=== PATIENT | male | born 1980 | race American Indian/Alaskan Native ===

== ENCOUNTER 2017-03-30 10:17 | Emergency (ER) | payer SELFPAY ==
[2017-03-30 10:53] VITALS: BP 154/94
[2017-03-30] MEDS ORDERED: TORADOL IM ONE (13:35)
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
== END 2017-03-30 14:06 | disposition home or self-care (01) ==
LOC: ED 10:17
DX: S39.012A Strain of muscle, fascia and tendon of lower back, initial encounter (principal); G43.909 Migraine, unspecified, not intractable, without status migrainosus; X50.0XXA Overexertion from strenuous movement or load, initial encounter; Y93.89 Activity, other specified; Y99.8 Other external cause status; Y92.89 Other specified places as the place of occurrence of the external cause
CPT/HCPCS: 96372; 99282; J1885

== ENCOUNTER 2017-08-28 18:57 | Emergency (ER) | payer SELFPAY ==
[2017-08-28 19:48] VITALS: BP 115/75
[2017-08-28] MEDS ORDERED: TORADOL IM ONE (20:36)
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
[2017-08-28 21:10] LABS: Bacteria,Urine 1+ /HPF (Negative)
[2017-08-28 21:26] LABS: Bilirubin,Urine Negative (Negative); Blood,Urine Negative (Negative); Ketones,Urine Trace mg/dL (Negative)
[2017-08-28 21:27] LABS: Leukocyte Esterase,Urine Negative (Negative); Nitrite,Urine Negative (Negative); Urobilinogen,Urine < 2.0 mg/dL (<2.0)
== END 2017-08-28 22:38 | disposition home or self-care (01) ==
LOC: ED 18:57
DX: S39.012A Strain of muscle, fascia and tendon of lower back, initial encounter (principal); G43.909 Migraine, unspecified, not intractable, without status migrainosus; F10.10 Alcohol abuse, uncomplicated; X50.0XXA Overexertion from strenuous movement or load, initial encounter; Y93.89 Activity, other specified; Y92.89 Other specified places as the place of occurrence of the external cause; Y99.8 Other external cause status
CPT/HCPCS: 81001; 96372; 99283; J1885

== ENCOUNTER 2017-09-13 20:58 | Emergency (ER) | payer SELFPAY ==
[2017-09-14] MEDS ORDERED: PEPCID PO ONE (03:09)
[2017-09-14] MEDS ORDERED: LIDOCAINE VISCOUS 2% PO ONE (03:09)
[2017-09-14] MEDS ORDERED: ALUM-MAG HYDROX-SIMETH 200-200-20MG/5ML PO ONE (03:10)
[2017-09-14] MEDS ORDERED: REGLAN PO ONE (03:10)
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
[2017-09-14 07:00] VITALS: BP 101/51
== END 2017-09-14 04:20 | disposition home or self-care (01) ==
LOC: ED 20:58
DX: R06.6 Hiccough (principal); G43.909 Migraine, unspecified, not intractable, without status migrainosus
CPT/HCPCS: 99282

== ENCOUNTER 2017-10-06 22:02 | Emergency (ER) | payer OTHER ==
[2017-10-06 22:41] LABS: Bilirubin,Urine NEG (Negative); Blood,Urine NEG (Negative); Color,Urine Yellow (Yellow); Mucus,Urine FEW /HPF; Nitrite,Urine NEG (Negative); Protein,Urine <15 mg/dL mg/dL (Negative)
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
--- NOTE | 2017-10-07 06:05 | XRay Report ---
FINAL REPORT PROCEDURE: XR SPINE LUMBOSACRAL 2-3V TECHNIQUE: Lumbar spine radiographs, including AP, lateral, and lumbosacral spot views. CPT 46882 HISTORY: bilateral low back pain COMPARISON: No prior studies are available for comparison. FINDINGS: Alignment: Normal. Vertebral body heights/Disk spaces: Normal. Fracture(s): None. Facets: Normal. Bone mineralization: Normal. IMPRESSION: Normal Examination.
[2017-10-07 07:40] VITALS: BP 106/71
== END 2017-10-07 07:40 | disposition home or self-care (01) ==
LOC: ED 22:02
DX: S39.012A Strain of muscle, fascia and tendon of lower back, initial encounter (principal); X58.XXXA Exposure to other specified factors, initial encounter; Y93.89 Activity, other specified; Y99.8 Other external cause status; Y92.69 Other specified industrial and construction area as the place of occurrence of the external cause
CPT/HCPCS: 72100; 81001; 99283

== ENCOUNTER 2017-12-29 10:57 | Emergency (ER) | payer SELFPAY ==
[2017-12-29 11:09] VITALS: BP 127/78
--- NOTE | 2017-12-29 11:29 | XRay Report ---
LEFT HIP: Pain. The bony architecture is intact without evidence of fracture or dislocation. No significant soft tissue abnormality is seen. IMPRESSION: Normal left hip.
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
== END 2017-12-29 15:05 | disposition home or self-care (01) ==
LOC: ED 10:57
DX: M25.552 Pain in left hip (principal); G43.909 Migraine, unspecified, not intractable, without status migrainosus; I10 Essential (primary) hypertension; S76.012A Strain of muscle, fascia and tendon of left hip, initial encounter; X58.XXXA Exposure to other specified factors, initial encounter; Y93.89 Activity, other specified; Y92.89 Other specified places as the place of occurrence of the external cause; Y99.8 Other external cause status
CPT/HCPCS: 99283

== ENCOUNTER 2018-06-18 22:37 | Emergency (ER) | payer BC ==
[2018-06-19 00:07] VITALS: BP 133/80
--- NOTE | 2018-06-19 01:04 | XRay Report ---
FINAL REPORT PROCEDURE: XR CHEST ROUTINE 2V TECHNIQUE: Chest radiograph posteroanterior projection. CPT 49165 HISTORY: shortness of breath COMPARISON: No prior studies are available for comparison. FINDINGS: Heart: Normal. Mediastinum/Vessels: Normal. Lungs/Pleural space: Normal. Bony thorax: No acute osseous abnormality. IMPRESSION: Normal examination
--- NOTE | 2018-06-19 06:12 | XRay Report ---
FINAL REPORT PROCEDURE: XR WRIST 2V LT TECHNIQUE: LEFT wrist radiographs, AP and lateral views. HISTORY: left wrist pain after a near fall COMPARISON: No prior studies are available for comparison. FINDINGS: Fracture(s)and/or Dislocation(s): None. Alignment: Normal. Joint space(s): Normal. Soft tissues: Normal. Bone mineralization: Normal. Foreign bodies: None. IMPRESSION: Normal Examination
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
== END 2018-06-19 06:43 | disposition home or self-care (01) ==
LOC: ED 22:37
DX: R05 Cough (principal); M25.532 Pain in left wrist; G43.909 Migraine, unspecified, not intractable, without status migrainosus
CPT/HCPCS: 71046

== ENCOUNTER 2018-11-04 10:22 | Emergency (ER) | payer BC ==
[2018-11-04 10:28] VITALS: BP 126/69
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
== END 2018-11-04 11:10 | disposition home or self-care (01) ==
LOC: ED 10:22
DX: J00 Acute nasopharyngitis [common cold] (principal); R06.6 Hiccough; G43.909 Migraine, unspecified, not intractable, without status migrainosus
CPT/HCPCS: 99282

== ENCOUNTER 2018-12-25 09:22 | Emergency (ER) | payer BC ==
[2018-12-25 09:51] VITALS: BP 124/80
--- NOTE | 2018-12-25 11:28 | XRay Report ---
ROUTINE CHEST, TWO VIEWS: HISTORY: Productive cough. The trachea, heart, mediastinal contour, lung barger and bony thorax are unremarkable. IMPRESSION: Unremarkable chest x-ray. No change since 06/19/18.
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
== END 2018-12-25 11:52 | disposition home or self-care (01) ==
LOC: ED 09:22
DX: J20.9 Acute bronchitis, unspecified (principal); G43.909 Migraine, unspecified, not intractable, without status migrainosus; F17.200 Nicotine dependence, unspecified, uncomplicated
CPT/HCPCS: 71046

== ENCOUNTER 2019-01-18 22:36 | Emergency (ER) | payer BC ==
[2019-01-18] MEDS ORDERED: REGLAN PO ONE (23:31)
[2019-01-18] MEDS ORDERED: BENADRYL PO ONE (23:31)
[2019-01-18] MEDS ORDERED: TORADOL PO ONE (23:32)
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
[2019-01-19 00:57] VITALS: BP 121/70
== END 2019-01-19 00:56 | disposition home or self-care (01) ==
LOC: ED 22:36
DX: G43.909 Migraine, unspecified, not intractable, without status migrainosus (principal)
CPT/HCPCS: 99282

== ENCOUNTER 2019-03-17 03:35 | Emergency (ER) | payer BC ==
[2019-03-17 03:43] VITALS: BP 151/88
[2019-03-17] MEDS ORDERED: TORADOL IM ONE (04:03)
[2019-03-17] MEDS ORDERED: DECADRON IM ONE (04:03)
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
== END 2019-03-17 04:49 | disposition home or self-care (01) ==
LOC: ED 03:35
DX: S46.912A Strain of unspecified muscle, fascia and tendon at shoulder and upper arm level, left arm, initial encounter (principal); M54.12 Radiculopathy, cervical region; G43.909 Migraine, unspecified, not intractable, without status migrainosus; Z98.890 Other specified postprocedural states; X58.XXXA Exposure to other specified factors, initial encounter; Y93.89 Activity, other specified; Y92.89 Other specified places as the place of occurrence of the external cause; Y99.8 Other external cause status
CPT/HCPCS: 96372; 99282; J1100; J1885

== ENCOUNTER 2019-04-20 17:41 | Observation (INO) | payer BC ==
[2019-04-20] MEDS ORDERED: ATROVENT IH ONE (17:49)
[2019-04-20] MEDS ORDERED: PROVENTIL IH ONE ×2 (17:49→19:27)
[2019-04-20] MEDS ORDERED: DECADRON PO ONE (17:49)
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
--- NOTE | 2019-04-20 18:47 | XRay Report ---
CHEST 2 VIEWS 1811 INDICATION / CLINICAL INFORMATION: Shortness of breath, chills, body aches. COMPARISON: None available. FINDINGS: SUPPORT DEVICES: None. HEART / MEDIASTINUM: No significant abnormality. LUNGS / PLEURA: No significant pulmonary or pleural abnormality. No pneumothorax. ADDITIONAL FINDINGS: No significant additional findings. IMPRESSION: No significant acute abnormality Signer Name: Ezio Gonzalez MD Signed: 04/20/2019 6:43 PM Workstation Name: [id number]
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
[2019-04-20] MEDS ORDERED: LIDOCAINE VISCOUS 2% PO ONE (19:25)
[2019-04-20] MEDS ORDERED: ALUM-MAG HYDROX-SIMETH 200-200-20MG/5ML PO ONE (19:25)
[2019-04-20 19:50] LABS: Basophils % (Auto) 0.1 % (0.0-1.8); Eosinophils # (Auto) 0.2 K/mm3 (0.0-0.4); Eosinophils % (Auto) 1.1 % (0.0-4.3); Hematocrit 41.2 % (35.5-45.6); Lymphocytes # (Auto) 1.3 K/mm3 (1.2-5.4); Lymphocytes % (Auto) 7.6 % (13.4-35.0); Mean Corpuscular HGB Conc 34 % (32-34); Mean Corpuscular Volume 85 fl (84-94); Monocytes # (Auto) 0.8 K/mm3 (0.0-0.8); Monocytes % (Auto) 4.5 % (0.0-7.3); Platelet Count 286 K/mm3 (140-440); Red Blood Count 4.85 M/mm3 (3.65-5.03); Red Cell Distribution Width 14.3 % (13.2-15.2)
[2019-04-20 20:00] LABS: INR 1.01 (0.87-1.13)
[2019-04-20 20:01] LABS: Partial Thromboplastin Time 21.9 Sec. (24.2-36.6)
[2019-04-20 20:07] LABS: Alanine Aminotransferase 18 units/L (7-56); Albumin 3.8 g/dL (3.9-5); BUN/Creatinine Ratio 7; Blood Urea Nitrogen 6 mg/dL (9-20)
[2019-04-20 20:22] LABS: Hemolysis Index 60
--- NOTE | 2019-04-20 21:25 | Cat Scan Report ---
CTA CHEST WITH IV CONTRAST INDICATION: Acute onset chest pain with dyspnea. TECHNIQUE: Axial CT images were obtained through the chest after injection of 100 mL IV contrast. 3 plane MIP re constructions were produced. All CT scans at this location are performed using CT dose reduction for ALARA by means of automated exposure control. COMPARISON: None available. FINDINGS: PULMONARY ARTERIES: No pulmonary emboli. AORTA AND ARTERIES: No acute abnormality. MEDIASTINUM: No mass, lymphadenopathy or other significant abnormality. The heart is normal in size w ithout a pericardial effusion. The trachea and main bronchi are patent and normal in caliber. LUNGS: No suspicious consolidation, nodule or mass. No pneumothorax or pleural effusion. ADDITIONAL FINDINGS: None. UPPER ABDOMEN: No acute findings. BONES: No significant osseous abnormality. IMPRESSION: 1. No CT evidence for pulmonary embolism. 2. No acute findings. Signer Name: Maik Astudillo MD Signed: 04/20/2019 9:20 PM Workstation Name: [id number]
[2019-04-20 22:24] LABS: Bilirubin,Urine NEG (Negative); Blood,Urine NEG (Negative); Color,Urine Straw (Yellow); Protein,Urine <15 mg/dL mg/dL (Negative); Urobilinogen,Urine < 2.0 mg/dL (<2.0); WBC,Urine < 1.0 /HPF (0.0-6.0)
[2019-04-20] MEDS ORDERED: ROCEPHIN/NS 1 GM/50 ML 1 GM/50 ML BAG IV ONE (22:39)
[2019-04-20] MEDS ORDERED: NACL 0.9% 1000 ML 1,000 ML IV ONE (22:39)
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
[2019-04-20] MEDS ORDERED: PROVENTIL IH PRN (23:59)
[2019-04-20] MEDS ORDERED: TYLENOL PO PRN (23:59)
[2019-04-20] MEDS ORDERED: PERCOCET 5/325 PO PRN (23:59)
[2019-04-20] MEDS ORDERED: ZOFRAN IV PRN (23:59)
[2019-04-20] MEDS ORDERED: SODIUM CHLORIDE FLUSH SYRINGE 10 ML IV PRN (23:59)
[2019-04-21 00:56] LABS: Creatine Kinase MB 2.9 ng/mL (0.0-4.0)
[2019-04-21 06:17] LABS: Hematocrit 40.4 % (35.5-45.6); Hemoglobin 13.2 gm/dl (11.8-15.2); Mean Corpuscular HGB Conc 33 % (32-34); Mean Corpuscular Volume 85 fl (84-94); Platelet Count 301 K/mm3 (140-440); Red Blood Count 4.75 M/mm3 (3.65-5.03); Red Cell Distribution Width 14.7 % (13.2-15.2)
[2019-04-21 06:44] LABS: BUN/Creatinine Ratio 8; Blood Urea Nitrogen 7 mg/dL (9-20); Hemolysis Index 0
[2019-04-21 07:04] LABS: Creatine Kinase MB 2.7 ng/mL (0.0-4.0)
[2019-04-21 07:45] LABS: Band Neutrophils # (Manual) 0.7 K/mm3; Basophils % (Manual) 0 % (0.0-1.8); Eosinophils % (Manual) 0 % (0.0-4.3); Total Cells Counted 100
[2019-04-21 07:46] LABS: Anisocytosis 1+
[2019-04-21] MEDS: SODIUM CHLORIDE FLUSH SYRINGE 10 ML IV SCH ×2 (10:20→23:01)
[2019-04-21] MEDS: LOVENOX SUB-Q SCH (10:20)
--- NOTE | 2019-04-21 11:58 | Progress Note ---
Assessment and Plan Assessment and plan: Chest pain. Stress thallium in a.m. Follow-up echocardiogram. Leukocytosis. Etiology likely stress-induced. Follow-up CBC in a.m. Elevated d-dimer. CTA of chest negative. History Interval history: No new issues overnight. Hospitalist Physical - Constitutional Vitals: Temp Pulse Resp BP Pulse Ox 98.6 F 74 18 131/76 98 04/21/19 08:16 04/21/19 08:16 04/21/19 08:16 04/21/19 08:16 04/21/19 08:16 General appearance: Present: no acute distress, well-nourished - EENT Eyes: Present: PERRL, EOM intact ENT: hearing intact, clear oral mucosa, dentition normal - Neck Neck: Present: supple, normal ROM - Respiratory Respiratory effort: normal Respiratory: bilateral: CTA - Cardiovascular Rhythm: regular Heart Sounds: Present: S1 & S2. Absent: gallop, rub - Extremities Extremities: no ischemia, No edema, Full ROM - Abdominal General gastrointestinal: soft, non-tender, non-distended, normal bowel sounds - Integumentary Integumentary: Present: clear, warm, dry - Neurologic Neurologic: CNII-XII intact, moves all extremities Results - Labs CBC & Chem 7: 04/21/19 04:28 04/21/19 04:28 Labs: Laboratory Last Values WBC 13.9 K/mm3 (4.5-11.0) H 04/21/19 04:28 RBC 4.75 M/mm3 (3.65-5.03) 04/21/19 04:28 Hgb 13.2 gm/dl (11.8-15.2) 04/21/19 04:28 Hct 40.4 % (35.5-45.6) 04/21/19 04:28 MCV 85 fl (84-94) 04/21/19 04:28 MCH 28 pg (28-32) 04/21/19 04:28 MCHC 33 % (32-34) 04/21/19 04:28 RDW 14.7 % (13.2-15.2) 04/21/19 04:28 Plt Count 301 K/mm3 (140-440) 04/21/19 04:28 Lymph % (Auto) 7.6 % (13.4-35.0) L 04/20/19 19:37 [place] % (Auto) 4.5 % (0.0-7.3) 04/20/19 19:37 Eos % (Auto) 1.1 % (0.0-4.3) 04/20/19 19:37 Baso % (Auto) 0.1 % (0.0-1.8) 04/20/19 19:37 Lymph # 1.3 K/mm3 (1.2-5.4) 04/20/19 19:37 [place] # 0.8 K/mm3 (0.0-0.8) 04/20/19 19:37 Eos # 0.2 K/mm3 (0.0-0.4) 04/20/19 19:37 Baso # 0.0 K/mm3 (0.0-0.1) 04/20/19 19:37 Add Manual Diff Complete 04/21/19 04:28 Total Counted 100 04/21/19 04:28 Seg Neutrophils % Nutrition Representative 04/21/19 04:28 Seg Neuts % (Manual) 81.0 % (40.0-70.0) H 04/21/19 04:28 5.0 % 04/21/19 04:28 12.0 % (13.4-35.0) L 04/21/19 04:28 Reactive Lymphs % (Man) 0 % 04/21/19 04:28 2.0 % (0.0-7.3) 04/21/19 04:28 0 % (0.0-4.3) 04/21/19 04:28 0 % (0.0-1.8) 04/21/19 04:28 0 % 04/21/19 04:28 0 % 04/21/19 04:28 0 % 04/21/19 04:28 0 % 04/21/19 04:28 Nucleated RBC % Not Reportable 04/21/19 04:28 Seg Neutrophils # 14.8 K/mm3 (1.8-7.7) H 04/20/19 19:37 Seg Neutrophils # Man 11.3 K/mm3 (1.8-7.7) H 04/21/19 04:28 Band Neutrophils # 0.7 K/mm3 04/21/19 04:28 1.7 K/mm3 (1.2-5.4) 04/21/19 04:28 Abs React Lymphs (Man) 0.0 K/mm3 04/21/19 04:28 0.3 K/mm3 (0.0-0.8) 04/21/19 04:28 0.0 K/mm3 (0.0-0.4) 04/21/19 04:28 0.0 K/mm3 (0.0-0.1) 04/21/19 04:28 0.0 K/mm3 04/21/19 04:28 0.0 K/mm3 04/21/19 04:28 0.0 K/mm3 04/21/19 04:28 Blast Cells # 0.0 K/mm3 04/21/19 04:28 WBC Morphology Not Reportable 04/21/19 04:28 WBC Morphology TNR 04/21/19 04:28 Hypersegmented Neuts Not Reportable 04/21/19 04:28 Hyposegmented Neuts Not Reportable 04/21/19 04:28 Hypogranular Neuts Not Reportable 04/21/19 04:28 Not Reportable 04/21/19 04:28 Not Reportable 04/21/19 04:28 Not Reportable 04/21/19 04:28 Not Reportable 04/21/19 04:28 Not Reportable 04/21/19 04:28 Not Reportable 04/21/19 04:28 Appears normal 04/21/19 04:28 Not Reportable 04/21/19 04:28 Plt Clumps, EDTA Not Reportable 04/21/19 04:28 Not Reportable 04/21/19 04:28 Not Reportable 04/21/19 04:28 Not Reportable 04/21/19 04:28 Plt Morphology Comment Not Reportable 04/21/19 04:28 RBC Morphology Not Reportable 04/21/19 04:28 Dimorphic RBCs Not Reportable 04/21/19 04:28 Not Reportable 04/21/19 04:28 Not Reportable 04/21/19 04:28 Not Reportable 04/21/19 04:28 1+ 04/21/19 04:28 Not Reportable 04/21/19 04:28 Not Reportable 04/21/19 04:28 Not Reportable 04/21/19 04:28 Not Reportable 04/21/19 04:28 Not Reportable 04/21/19 04:28 Not Reportable 04/21/19 04:28 Not Reportable 04/21/19 04:28 Not Reportable 04/21/19 04:28 Not Reportable 04/21/19 04:28 Not Reportable 04/21/19 04:28 Not Reportable 04/21/19 04:28 Not Reportable 04/21/19 04:28 Not Reportable 04/21/19 04:28 Not Reportable 04/21/19 04:28 Not Reportable 04/21/19 04:28 Acanthocytes (Spur) Not Reportable 04/21/19 04:28 Rouleaux Not Reportable 04/21/19 04:28 Not Reportable 04/21/19 04:28 Not Reportable 04/21/19 04:28 Not Reportable 04/21/19 04:28 Not Reportable 04/21/19 04:28 Hem Pathologist Commnt No 04/21/19 04:28 PT 13.0 Sec. (12.2-14.9) 04/20/19 19:37 INR 1.01 (0.87-1.13) 04/20/19 19:37 APTT 21.9 Sec. (24.2-36.6) L 04/20/19 19:37 1404.54 ng/mlDDU (0-234) H 04/20/19 19:37 Sodium 141 mmol/L (137-145) D 04/21/19 04:28 Potassium 4.1 mmol/L (3.6-5.0) 04/21/19 04:28 Chloride 104.8 mmol/L (98-107) 04/21/19 04:28 Carbon Dioxide 24 mmol/L (22-30) 04/21/19 04:28 16 mmol/L 04/21/19 04:28 BUN 7 mg/dL (9-20) L 04/21/19 04:28 0.9 mg/dL (0.8-1.5) 04/21/19 04:28 Estimated GFR > 60 ml/min 04/21/19 04:28 8 % 04/21/19 04:28 Glucose 209 mg/dL (75-100) H 04/21/19 04:28 Calcium 9.0 mg/dL (8.4-10.2) 04/21/19 04:28 Magnesium 1.80 mg/dL (1.7-2.3) 04/20/19 22:02 0.40 mg/dL (0.1-1.2) 04/20/19 19:37 AST 20 units/L (5-40) 04/20/19 19:37 ALT 18 units/L (7-56) 04/20/19 19:37 57 units/L (35-129) 04/20/19 19:37 172 units/L (55-170) H 04/21/19 04:28 CK-MB (CK-2) 2.7 ng/mL (0.0-4.0) 04/21/19 04:28 CK-MB (CK-2) Rel Index 1.5 (0-4) 04/21/19 04:28 < 0.010 ng/mL (0.00-0.029) 04/21/19 04:28 7.6 g/dL (6.3-8.2) 04/20/19 19:37 3.8 g/dL (3.9-5) L 04/20/19 19:37 1.0 % 04/20/19 19:37 7 units/L (13-60) L 04/20/19 19:37 Straw (Yellow) 04/20/19 21:57 Clear (Clear) 04/20/19 21:57 7.0 (5.0-7.0) 04/20/19 21:57 Ur Specific [place] 1.015 (1.003-1.030) 04/20/19 21:57 <15 mg/dl mg/dL (Negative) 04/20/19 21:57 Neg mg/dL (Negative) 04/20/19 21:57 Neg mg/dL (Negative) 04/20/19 21:57 Neg (Negative) 04/20/19 21:57 Neg (Negative) 04/20/19 21:57 Neg (Negative) 04/20/19 21:57 < 2.0 mg/dL (<2.0) 04/20/19 21:57 Ur Leukocyte Esterase Neg (Negative) 04/20/19 21:57 < 1.0 /HPF (0.0-6.0) 04/20/19 21:57 1.0 /HPF (0.0-6.0) 04/20/19 21:57 Active Medications - Current Medications Current Medications: Generic Name Dose Route Start Last Admin Trade Name Freq PRN Reason Stop Dose Admin Acetaminophen 650 mg 04/20/19 23:59 Tylenol PO Q4H PRN Pain MILD(1-3)/Fever >100.5/LINDER Albuterol 2.5 mg 04/20/19 23:59 Proventil IH Q4HRT PRN Shortness Of Breath Enoxaparin Sodium 40 mg 04/21/19 10:00 04/21/19 10:20 Lovenox SUB-Q 40 mg QDAY BERTRAND Administration Ondansetron HCl 4 mg 04/20/19 23:59 Zofran IV Q8H PRN Nausea And Vomiting Oxycodone/Acetaminophen 1 tab 04/20/19 23:59 Percocet 5/325 PO Q6H PRN Pain, Moderate (4-6) Pneumococcal Polyvalent Vaccine 0.5 ml 04/21/19 12:00 Pneumovax 23 IM 04/21/19 12:01 .ONCE ONE Sodium Chloride 10 ml 04/21/19 10:00 04/21/19 10:20 Sodium Chloride Flush Syringe 10 Ml IV 10 ml BID BERTRAND Administration Sodium Chloride 10 ml 04/20/19 23:59 Sodium Chloride Flush Syringe 10 Ml IV PRN PRN LINE FLUSH
[2019-04-21] MEDS ORDERED: PNEUMOVAX 23 IM ONE (12:00)
[2019-04-21] MEDS ORDERED: THORAZINE PO PRN (12:49)
[2019-04-22 06:01] LABS: Basophils % (Auto) 0.1 % (0.0-1.8); Eosinophils # (Auto) 0.6 K/mm3 (0.0-0.4); Eosinophils % (Auto) 5.8 % (0.0-4.3); Hematocrit 39.2 % (35.5-45.6); Hemoglobin 13.1 gm/dl (11.8-15.2); Lymphocytes # (Auto) 2.7 K/mm3 (1.2-5.4); Lymphocytes % (Auto) 24.8 % (13.4-35.0); Mean Corpuscular HGB Conc 33 % (32-34); Mean Corpuscular Volume 85 fl (84-94); Monocytes # (Auto) 0.7 K/mm3 (0.0-0.8); Monocytes % (Auto) 6.7 % (0.0-7.3); Platelet Count 318 K/mm3 (140-440); Red Blood Count 4.59 M/mm3 (3.65-5.03); Red Cell Distribution Width 14.2 % (13.2-15.2)
[2019-04-22 06:16] LABS: BUN/Creatinine Ratio 10; Blood Urea Nitrogen 10 mg/dL (9-20); Calcium 8.8 mg/dL (8.4-10.2); Hemolysis Index 6
[2019-04-22 10:56] VITALS: BP 127/81
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
[2019-04-22] MEDS: LOVENOX SUB-Q SCH (11:41)
[2019-04-22] MEDS: SODIUM CHLORIDE FLUSH SYRINGE 10 ML IV SCH (11:42)
--- NOTE | 2019-04-22 13:08 | Treadmill Report ---
TREADMILL STRESS TEST REPORT REASON FOR STUDY: Chest pain. STRESS TEST PROTOCOL: The patient completed 12 minutes and 1 second of a Brayan protocol. He attained a peak heart rate of 157 per minute, which is 87% of his age predicted maximum (12.2 METs). No ischemic ECG changes. No chest pain. No arrhythmias. The test was terminated due to fatigue. IMPRESSION: Negative stress test. No evidence of stress-induced ischemia. JOB# [id number] AGO/NTS
== END 2019-04-22 13:48 | disposition home or self-care (01) ==
LOC: ED 17:41 → 4A 23:52
PROVIDERS: ADMIT Internal Medicine; ATTEND Hospitalist
DX: R07.89 Other chest pain (principal); R06.02 Shortness of breath; D72.829 Elevated white blood cell count, unspecified; G43.909 Migraine, unspecified, not intractable, without status migrainosus; Z79.899 Other long term (current) drug therapy
CPT/HCPCS: 36415; 71046; 71275; 80048; 80053; 81001; 82550; 82553; 83690; 83735; 84484; 85007; 85025; 85379; 85610; 85730; 93005; 93010; 93017; 93306; 96365; 96372; 99284; G0378; J0696; J1650; J7030; J8540; Q9967; 90732; Q0161

== ENCOUNTER 2019-06-25 14:27 | Emergency (ER) | payer BC ==
--- NOTE | 2019-06-25 14:38 | Event Note ---
ED Screening Note Date of service: 06/25/19 Time: 14:35 ED Screening Note: This is a 38 y.o. M. that presents to the ER with low back pain and cough. Pain to lower back worse with sitting and movement since yesterday. Upper respiratory symptoms for several days. - injury, change in urinary/bowel, chills, numbness or tingling. This initial assessment/diagnostic orders/clinical plan/treatment(s) is/are subject to change based on patients health status, clinical progression and re-assessment by fellow clinical providers in the ED. Further treatment and workup at subsequent clinical providers discretion. Patient/guardian urged not to elope from the ED as their condition may be serious if not clinically assessed and managed. Initial orders include: XR of chest and L-spine
--- NOTE | 2019-06-25 15:14 | XRay Report ---
CHEST 2 VIEWS INDICATION / CLINICAL INFORMATION: cough. COMPARISON: 03/21/2019 FINDINGS: SUPPORT DEVICES: None. HEART / MEDIASTINUM: No significant abnormality. LUNGS / PLEURA: No significant pulmonary or pleural abnormality. No pneumothorax. ADDITIONAL FINDINGS: No significant additional findings. IMPRESSION: No significant abnormality or change from 03/21/2019 Signer Name: James Henderson MD FACR Signed: 06/25/2019 3:09 PM Workstation Name: [id number]
--- NOTE | 2019-06-25 15:16 | XRay Report ---
LUMBAR SPINE 3 VIEWS INDICATION / CLINICAL INFORMATION: low back pain. COMPARISON: 10/07/2017 FINDINGS: No significant skeletal abnormality. Alignment is normal. No change from prior examination dated 09/10 Signer Name: James Henderson MD FACMandie Signed: 06/25/2019 3:11 PM Workstation Name: [id number]
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
[2019-06-25] MEDS ORDERED: TORADOL IM ONE (19:13)
[2019-06-25] MEDS ORDERED: ZITHROMAX PO ONE (19:19)
[2019-06-25 20:02] VITALS: BP 134/86
== END 2019-06-25 19:55 | disposition home or self-care (01) ==
LOC: ED 14:27
DX: S39.012A Strain of muscle, fascia and tendon of lower back, initial encounter (principal); Z79.899 Other long term (current) drug therapy; X50.0XXA Overexertion from strenuous movement or load, initial encounter; Y93.89 Activity, other specified; Y92.69 Other specified industrial and construction area as the place of occurrence of the external cause; Y99.8 Other external cause status
CPT/HCPCS: 71046; 72100; 96372; 99283; J1885

== ENCOUNTER 2020-02-10 22:14 | Emergency (ER) | payer SELFPAY ==
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
[2020-02-11 00:43] VITALS: BP 124/79
== END 2020-02-11 00:44 | disposition home or self-care (01) ==
LOC: ED 22:14
DX: S61.012A Laceration without foreign body of left thumb without damage to nail, initial encounter (principal); G43.909 Migraine, unspecified, not intractable, without status migrainosus; Z79.899 Other long term (current) drug therapy; X58.XXXA Exposure to other specified factors, initial encounter; Y93.89 Activity, other specified; Y92.89 Other specified places as the place of occurrence of the external cause; Y99.8 Other external cause status
CPT/HCPCS: 99282

== ENCOUNTER 2020-03-14 15:38 | Emergency (ER) | payer OTHER ==
[2020-03-14 16:53] VITALS: BP 131/81
== END 2020-03-14 18:22 | disposition home or self-care (01) ==
LOC: ED 15:38
DX: S69.91XA Unspecified injury of right wrist, hand and finger(s), initial encounter (principal); G43.909 Migraine, unspecified, not intractable, without status migrainosus; Z98.890 Other specified postprocedural states; Z79.899 Other long term (current) drug therapy; W51.XXXA Accidental striking against or bumped into by another person, initial encounter; Y93.89 Activity, other specified; Y92.89 Other specified places as the place of occurrence of the external cause; Y99.8 Other external cause status

== ENCOUNTER 2020-08-28 12:16 | Emergency (ER) | payer SELFPAY ==
[2020-08-28 12:59] VITALS: BP 130/78
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
== END 2020-08-28 13:32 | disposition home or self-care (01) ==
LOC: ED 12:16
DX: S39.012A Strain of muscle, fascia and tendon of lower back, initial encounter (principal); X50.0XXA Overexertion from strenuous movement or load, initial encounter; Y93.89 Activity, other specified; Y92.89 Other specified places as the place of occurrence of the external cause; Y99.8 Other external cause status
CPT/HCPCS: 99282

== ENCOUNTER 2020-11-03 00:01 | Emergency (ER) | payer OTHER ==
[2020-11-03 00:23] VITALS: BP 132/86
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
== END 2020-11-03 02:10 | disposition home or self-care (01) ==
LOC: ED 00:01
DX: M54.5 Low back pain (principal); G43.909 Migraine, unspecified, not intractable, without status migrainosus; Z98.890 Other specified postprocedural states; Z79.899 Other long term (current) drug therapy
CPT/HCPCS: 99282

== ENCOUNTER 2020-11-30 23:42 | Emergency (ER) | payer OTHER ==
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
[2020-12-01 01:11] VITALS: BP 125/82
== END 2020-12-01 01:50 | disposition home or self-care (01) ==
LOC: ED 23:42
DX: S39.012A Strain of muscle, fascia and tendon of lower back, initial encounter (principal); M72.2 Plantar fascial fibromatosis; G43.909 Migraine, unspecified, not intractable, without status migrainosus; Z98.890 Other specified postprocedural states; Z79.1 Long term (current) use of non-steroidal anti-inflammatories (NSAID); Z79.2 Long term (current) use of antibiotics; Z79.899 Other long term (current) drug therapy; X58.XXXA Exposure to other specified factors, initial encounter; Y93.89 Activity, other specified; Y92.89 Other specified places as the place of occurrence of the external cause; Y99.8 Other external cause status
CPT/HCPCS: 99282

== ENCOUNTER 2021-08-24 09:22 | Emergency (ER) | payer SELFPAY ==
[2021-08-24 09:27] VITALS: BP 142/89
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
== END 2021-08-24 11:31 | disposition home or self-care (01) ==
LOC: ED 09:22
DX: J06.9 Acute upper respiratory infection, unspecified (principal); G43.909 Migraine, unspecified, not intractable, without status migrainosus
CPT/HCPCS: 99282

== ENCOUNTER 2022-01-13 10:28 | Emergency (ER) | payer SELFPAY ==
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
[2022-01-13] MEDS: KETOROLAC 10 MG TAB PO ONE (12:04)
[2022-01-13] MEDS: CYCLOBENZAPRINE 10 MG TAB PO ONE (12:04)
[2022-01-13] MEDS: DEXAMETHASONE 4 MG TAB PO ONE (12:04)
[2022-01-13 12:26] VITALS: BP 124/70
== END 2022-01-13 12:24 | disposition home or self-care (01) ==
LOC: ED 10:28
DX: M54.50 Low back pain, unspecified (principal); F17.200 Nicotine dependence, unspecified, uncomplicated; Z79.899 Other long term (current) drug therapy
CPT/HCPCS: 99282; J8540